=== PATIENT | female | born 1955 | race Caucasian/White ===

== ENCOUNTER 2017-04-02 13:53 | Emergency (ER) | payer BC ==
[~2017-04-02] VITALS: Ht 149.9 cm; Wt 106.8 kg
[~2017-04-02 13:53] MED LIST: GOOD NEIGHBOR325 MG PO; PLAQUENIL 200M200 MG PO
[2017-04-02] MEDS ORDERED: ASPIRIN 32325 MG/TAB PO (14:13)
[2017-04-02 16:55] VITALS: BP 173/93
== END 2017-04-02 16:56 | disposition home or self-care (01) ==
LOC: ED 13:53
DX: R07.9 Chest pain, unspecified (principal); M79.7 Fibromyalgia; F43.9 Reaction to severe stress, unspecified; E03.9 Hypothyroidism, unspecified

== ENCOUNTER → 2021-10-24 | Outpatient (CLI) | payer MEDICARE, OTHER ==
[~2021-10-24] MED LIST changes: +ASPIRIN 32325 MG/TAB PO
== END ==
LOC: RAD 14:37
DX: M51.36 Other intervertebral disc degeneration, lumbar region (principal); M43.16 Spondylolisthesis, lumbar region; M54.6 Pain in thoracic spine; M54.2 Cervicalgia

== ENCOUNTER → 2021-10-25 | Outpatient (CLI) | payer MEDICARE, OTHER ==
[2021-10-25 09:49] LABS: BASO # 0.05 K/mm3 (0.02-0.10); EOS # 0.19 K/mm3 (0.04-0.40); EOS % 3.6 % (1.0-5.0); HEMATOCRIT 40.4 % (37.0-47.0); HEMOGLOBIN 12.9 g/dL (12.5-16.0); LYMPH# 1.69 K/mm3 (1.50-4.00); MEAN CELL VOLUME 87 fl (78-100); MEAN CORPUSCULAR HEMOGLOBIN 28 pg (27-31); MEAN CORPUSCULAR HGB CONC 32 g/dL (33-37); MEAN PLATELET VOLUME 10.5 fl (7.4-10.4); MONO # 0.32 K/mm3 (0.20-0.80); NEU # 3.04 K/mm3 (1.40-6.50); PLATELET COUNT 263 K/mm3 (130-400); RED BLOOD COUNT 4.65 M/mm3 (4.10-5.30); RED CELL DISTRIBUTION WIDTH 13.2 % (11.5-14.5); WHITE BLOOD COUNT 5.3 K/mm3 (4.8-10.8)
[2021-10-25 09:52] LABS: ALBUMIN 4.4 g/dL (3.4-4.8); POTASSIUM 3.8 mmol/L (3.5-5.1)
[2021-10-25 09:53] LABS: CALCIUM 9.5 mg/dL (8.3-10.5)
[2021-10-25 09:54] LABS: TOTAL PROTEIN 7.4 g/dL (6.2-8.1)
[2021-10-25 09:56] LABS: TOTAL BILIRUBIN 0.6 mg/dL (0.2-1.2)
== END ==
LOC: LAB 08:16
PROVIDERS: Physician Assistant
DX: Z00.00 Encounter for general adult medical examination without abnormal findings (principal); Z13.29 Encounter for screening for other suspected endocrine disorder; Z13.1 Encounter for screening for diabetes mellitus; E78.5 Hyperlipidemia, unspecified; K90.9 Intestinal malabsorption, unspecified; B27.00 Gammaherpesviral mononucleosis without complication

== ENCOUNTER 2021-11-22 14:03 | Outpatient (RCR) | payer MEDICARE, OTHER | END 2021-11-25 | disposition home or self-care (01) | LOC: PT | DX: M54.2 Cervicalgia (principal) ==

== ENCOUNTER → 2021-11-30 | Outpatient (CLI) | payer MEDICARE, OTHER | LOC: RAD 11:52 | DX: M17.0 Bilateral primary osteoarthritis of knee (principal) ==

== ENCOUNTER → 2022-05-31 | Outpatient (CLI) | payer MEDICARE, OTHER | LOC: AMSURD 15:17 | DX: Z76.89 Persons encountering health services in other specified circumstances (principal) ==

== ENCOUNTER → 2024-02-25 | Outpatient (CLI) | payer MEDICARE, OTHER ==
[~2024-02-25] MED LIST changes: +Gadoterate 20 ML VIAL IV ONE
== END ==
LOC: RAD 14:18
DX: R51.9 Headache, unspecified (principal)
CPT/HCPCS: A9575

== ENCOUNTER → 2024-06-17 | Outpatient (CLI) | payer MEDICARE, OTHER ==
[~2024-06-17] MED LIST changes: -Gadoterate 20 ML VIAL IV ONE
== END ==
LOC: VAS 16:30 → RAD 16:30
DX: R01.1 Cardiac murmur, unspecified (principal)